=== PATIENT | male | born 1990 | race Caucasian/White ===

== ENCOUNTER 2016-12-09 13:34 | Emergency (ER) | payer MEDICAID ==
[~2016-12-09] VITALS: Ht 167.6 cm; Wt 71.1 kg
[2016-12-09 13:36] VITALS: BP 119/80
[2016-12-09] MEDS ORDERED: LIDOCAINE 1%, 20ML SQ ONE (14:30)
[2016-12-09] MEDS ORDERED: LIDOCAINE 1%, 20ML ONE (14:51)
== END 2016-12-09 15:32 | disposition home or self-care (01) ==
LOC: ED 15:15
DX: S71.112A Laceration without foreign body, left thigh, initial encounter (principal); W26.0XXA Contact with knife, initial encounter; Y93.89 Activity, other specified; Y99.8 Other external cause status; Y92.69 Other specified industrial and construction area as the place of occurrence of the external cause
CPT/HCPCS: 12032; 99284

== ENCOUNTER 2017-07-30 11:38 | Emergency (ER) | payer MEDICAID ==
[~2017-07-30] VITALS: Ht 167.6 cm; Wt 68.2 kg
[2017-07-30 11:50] VITALS: BP 114/71
[2017-07-30] MEDS ORDERED: KETOROLAC 30 MG/1 ML ONE (12:40)
[2017-07-30] MEDS ORDERED: KETOROLAC 30 MG/1 ML IM ONE (13:00)
== END 2017-07-30 13:38 | disposition home or self-care (01) ==
LOC: ED 13:20
DX: M25.562 Pain in left knee (principal); M25.462 Effusion, left knee
CPT/HCPCS: 29505; 73564; 96372; 99284; J1885

== ENCOUNTER 2017-09-04 08:30 | Emergency (ER) | payer MEDICAID ==
[~2017-09-04] VITALS: Ht 167.6 cm; Wt 69.5 kg
[2017-09-04] MEDS ORDERED: LORazepam 1MG TABLET PO ONE (09:00)
[2017-09-04] MEDS ORDERED: LORazepam 1MG TABLET ONE (09:08)
[2017-09-04 11:50] VITALS: BP 118/73
== END 2017-09-04 11:55 | disposition home or self-care (01) ==
LOC: ED 10:43
DX: F15.129 Other stimulant abuse with intoxication, unspecified (principal); F41.9 Anxiety disorder, unspecified
CPT/HCPCS: 99284

== ENCOUNTER 2018-10-23 09:08 | Emergency (ER) | payer SELFPAY ==
[~2018-10-23] VITALS: Ht 167.6 cm; Wt 69.0 kg
[2018-10-23] MEDS ORDERED: ONDANSETRON ODT 4 MG PO ONE (09:30)
[2018-10-23] MEDS ORDERED: KETOROLAC 30 MG/1 ML IM ONE (09:30)
--- NOTE | 2018-10-23 09:48 | NUR ---
PT HAS CO "FEELING SICK W STOMACH ACHE AND FEELING DIZZY". PT VS STABLE, RESTING COMFORTABLE.
[2018-10-23 10:00] LABS: BASOPHILS # (AUTO) 0.03 x10^3/uL (0-0.1); BASOPHILS % (AUTO) 0 % (0-1); EOSINOPHILS # (AUTO) 0.04 x10^3/uL (0-0.4); EOSINOPHILS % (AUTO) 0 % (1-7); LYMPHOCYTES # (AUTO) 0.37 x10^3/uL (1-3.4); LYMPHOCYTES % (AUTO) 4 % (22-44); MD NO; MEAN CORPUSCULAR HEMOGLOBIN 32.3 pg (27.5-34.5); MEAN CORPUSCULAR HGB CONC 33.5 g/dL (33.2-36.2); MEAN CORPUSCULAR VOLUME 96.4 fL (81-97); MEAN PLATELET VOLUME 8.4 fL (7.4-10.4); MONOCYTES # (AUTO) 0.45 x10^3/uL (0.2-0.8); MONOCYTES % (AUTO) 5 % (2-9); NEUTROPHILS # (AUTO) 7.48 x10^3/uL (1.8-6.8); NEUTROPHILS % (AUTO) 89 % (42-75); PLATELET COUNT 121 x10^3/uL (130-400); RED BLOOD COUNT 5.13 x10^6/uL (4.38-5.82); RED CELL DISTRIBUTION WIDTH 13.3 % (9.4-14.8)
[2018-10-23] MEDS ORDERED: ONDANSETRON ODT 4 MG ONE (10:05)
[2018-10-23] MEDS ORDERED: KETOROLAC 30 MG/1 ML ONE (10:05)
[2018-10-23 10:31] LABS: MICROSCOPIC INDICATED
[2018-10-23 10:50] LABS: CULTURE INDICATED? YES
--- NOTE | 2018-10-23 10:59 | NUR ---
pt tolerating po fluids
[2018-10-23 11:33] VITALS: BP 130/85
--- NOTE | 2018-10-23 11:34 | NUR ---
Patient/Caregiver given discharge instructions and they have confirmed that they understand the instructions. Patient ambulatory with steady gait.
== END 2018-10-23 11:37 | disposition home or self-care (01) ==
LOC: ED 10:21
DX: B34.9 Viral infection, unspecified (principal); F17.200 Nicotine dependence, unspecified, uncomplicated
CPT/HCPCS: 36415; 81001; 85025; 87086; 99283

== ENCOUNTER 2018-10-28 16:07 | Emergency (ER) | payer SELFPAY ==
[~2018-10-28] VITALS: Ht 167.6 cm; Wt 70.6 kg
[2018-10-28 20:17] VITALS: BP 126/67
== END 2018-10-28 21:01 | disposition home or self-care (01) ==
LOC: ED 17:15
DX: J20.8 Acute bronchitis due to other specified organisms (principal); F17.210 Nicotine dependence, cigarettes, uncomplicated; E86.0 Dehydration
CPT/HCPCS: 36415; 71046; 80048; 82040; 85025; 93005; 96361; 96374; 99284; J2405; J7030

== ENCOUNTER 2019-03-31 08:17 | Emergency (ER) | payer MEDICAID ==
[~2019-03-31] VITALS: Ht 167.6 cm; Wt 70.0 kg
[2019-03-31 08:18] VITALS: BP 116/79
--- NOTE | 2019-03-31 08:30 | NUR ---
THIS IS A 28 YO M BIB [facility] W/ C/O LEFT ANKLE PAIN SINCE LAST NIGHT. UNABLE TO BEAR WEIGHT ON IT. SWELLING PRESENT, CMS INTACT. PATIENT STATES HE HOPPED A FENCE LAST NIGHT AND LANDED ON IT. WAS UNABLE TO WALK TO ED SO CALLED AMBULANCE. RESPIRATIONS ARE EVEN AND UNLABORED. PATIENT IS IN NO ACUTE DISTRESS. RESTING ON GURNEY. CALL LIGHT IN REACH. DENIES FURTHER NEEDS AT THIS TIME.
--- NOTE | 2019-03-31 08:31 | NUR ---
ANKLE ELEVATED WITH GURNEY AND ICE PACK PLACED.
--- NOTE | 2019-03-31 08:48 | NUR ---
PATIENT REQUESTING PAIN MEDS. PROVIDER NOTIFIED.
[2019-03-31] MEDS ORDERED: HYDROcodone/APAP 5/325 TABLET PO ONE (09:30)
[2019-03-31] MEDS ORDERED: HYDROcodone/APAP 5/325 TABLET ONE (09:38)
--- NOTE | 2019-03-31 09:40 | NUR ---
PATEINT MEDICATED PER EMAR.
--- NOTE | 2019-03-31 09:55 | NUR ---
Patient given discharge instructions and they have confirmed that they understand the instructions. Patient ambulatory with steady gait.
== END 2019-03-31 09:56 | disposition home or self-care (01) ==
LOC: ED 09:30
DX: S93.492A Sprain of other ligament of left ankle, initial encounter (principal); F17.210 Nicotine dependence, cigarettes, uncomplicated; F15.129 Other stimulant abuse with intoxication, unspecified; X58.XXXA Exposure to other specified factors, initial encounter; Y93.89 Activity, other specified; Y92.89 Other specified places as the place of occurrence of the external cause; Y99.8 Other external cause status
CPT/HCPCS: 99283